=== PATIENT | female | born 2000 | race Caucasian/White ===

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

== ENCOUNTER 2022-04-14 02:26 | Emergency (ER) | payer BC, OTHER, SELFPAY | END 2022-04-14 04:01 | disposition home or self-care (01) | LOC: ERS 02:26 | DX: F10.129 Alcohol abuse with intoxication, unspecified (principal) | CPT/HCPCS: 99284 ==